=== PATIENT | male | born 1955 | race Caucasian/White ===

== ENCOUNTER 2017-05-27 12:27 | Inpatient (IN) | payer BC, OTHER ==
[2017-05-27] MEDS ORDERED: NS 0.9% 1000 ML* 1,000 ML IV ONE (12:56)
[2017-05-27 13:14] LABS: ABS Basophils 0 10^3/ul (0-0.2); ABS Eosinophils 0.1 10^3/ul (0-0.6); ABS Lymphocytes 1.1 10^3/ul (1.0-4.8); ABS Monocytes 0.6 10^3/ul (0-0.8); ABS Neutrophils 4.9 10^3/ul (1.5-7.7); ABS Nucleated RBC 0 10^3/ul; Eosinophil % 0.8 % (0-6); Hematocrit 45 % (42-52); Hemoglobin 15.7 g/dl (14.0-18.0); Mean Corpuscular HGB Conc 35 g/dl (31-36); Mean Corpuscular Hemoglobin 34 pg (27-31); Mean Corpuscular Volume 98 fL (80-94); Mean Platelet Volume 8 um3 (7.4-10.4); Nucleated Red Blood Cells % 0; Platelet Count 217 10^3/ul (150-450); Red Blood Count 4.61 10^6/ul (4.0-5.4); Red Cell Distribution Width 13 % (10.5-15); White Blood Count 6.7 10^3/ul (3.5-10.8)
[2017-05-27 13:37] LABS: EGFR Non-African American 104.6 (>60)
[2017-05-27] MEDS ORDERED: Furosemide IV* 10 MG/ML 2 ML VIAL (20 MG) IV ONE (14:22)
--- NOTE | 2017-05-27 14:26 | RAD ---
INDICATION: Generalized weakness COMPARISON: Chest x-ray December 20, 2004 TECHNIQUE: PA and lateral views of the chest were obtained. FINDINGS: The heart and mediastinum are normal in size and contour. The lungs are grossly clear. There is no evidence of large pleural effusion. Visualized bones are normal for the patient's age. There is no radiographic evidence of free air beneath the diaphragm IMPRESSION: No radiographic evidence of acute cardiopulmonary disease.
[2017-05-27 14:29] LABS: Urine Appearance Clear; Urine Blood 2+ (Negative); Urine Color Yellow; Urine Ketones Trace (Negative); Urine Protein Negative (Negative); Urine Specific Gravity 1.025 (1.010-1.030); Urine Urobilinogen Negative (Negative)
[2017-05-27] MEDS ORDERED: Nicotine PATCH 21 MG/24 HR* PATCH TRANSDERM SCH (18:00)
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
--- NOTE | 2017-05-27 18:33 | ED ---
Sally Elena Nilda, scribed for Romulo Caceres MD on 05/27/17 at 1304 . Complex/Multi-Sys Presentation - HPI Summary HPI Summary: This patient is a 62 year old M presenting to [facility] with a chief complaint of sudden onset constant anxiety and weakness for the past 3 days. Symptoms aggravated and alleviated by nothing. Patient reports N/V (4 days ago). Patient denies GA, CP, SOB, dizziness, abd pain, diarrhea, and constipation. Pt states he does not take medications. - History Of Current Complaint Chief Complaint: EDDysrhythmPalp Time Seen by Provider: 05/27/17 12:45 Hx Obtained From: Patient Onset/Duration: Sudden Onset, Lasting Days, Still Present Timing: Constant Aggravating Factor(s): nothing Alleviating Factor(s): nothing Associated Signs And Symptoms: Positive: Other - weakness, anxiety; denies GA, CP, SOB, dizziness, abd pain, diarrhea, and constipation - Allergies/Home Medications Allergies/Adverse Reactions: Allergies Allergy/AdvReac Type Severity Reaction Status Date / Time No Known Allergies Allergy Verified 05/27/17 12:36 Home Medications: Home Medications NK [No Home Medications Reported] 05/27/17 [History Confirmed 05/27/17] PMH/Surg Hx/FS Hx/Imm Hx Sensory History: Denies: Hx Legally Blind EENT History: Denies: Hx Deafness Neurological History: Reports: Other Neuro Impairments/Disorders - brain bleed from trauma Infectious Disease History: No Infectious Disease History: Denies: Traveled Outside the [place] in Last 30 Days - Family History Known Family History: Negative: Hypertension, Diabetes - Social History Hx Tobacco Use: Yes Smoking Status (MU): Current Every Day Smoker Type: Cigarettes Amount Used/How Often: 1 ppd Review of Systems Negative: Chest Pain Negative: Shortness Of Breath Positive: Vomiting, Nausea, Other - negative constipation. Negative: Abdominal Pain, Diarrhea Neurological: Other - negative dizziness Positive: Weakness. Negative: Headache Positive: Anxious All Other Systems Reviewed And Are Negative: Yes Physical Exam - Summary Physical Exam Summary: VITAL SIGNS: Reviewed. GENERAL: Patient is an unkept, male with poor hygiene in nails and poor dental hygiene who is lying comfortable in the stretcher. Patient is not in any acute respiratory distress. HEAD AND FACE: No signs of trauma. No ecchymosis, hematomas or skull depressions. No sinus tenderness. EYES: PERRLA, EOMI x 2, No injected conjunctiva, no nystagmus. EARS: Hearing grossly intact. Ear canals and tympanic membranes are within normal limits. MOUTH: Oropharynx within normal limits except for dry oral mucosa. NECK: Supple, trachea is midline, no adenopathy, no JVD, no carotid bruit, no c- spine tenderness, neck with full ROM. CHEST: Symmetric, no tenderness at palpation LUNGS: Clear to auscultation bilaterally. No wheezing or crackles. CVS: Regular rate and rhythm, S1 and S2 present, no murmurs or gallops appreciated. ABDOMEN: Soft, non-tender. No signs of distention. No rebound no guarding, and no masses palpated. Bowel sounds are normal. EXTREMITIES: FROM in all major joints, no edema, no cyanosis or clubbing. NEURO: Alert and oriented x 3. No acute neurological deficits. Speech is normal and follows commands. SKIN: Dry and warm Triage Information Reviewed: Yes Vital Signs On Initial Exam: Initial Vitals Temp Pulse Resp BP Pulse Ox 99.1 F 73 13 141/102 96 05/27/17 12:34 05/27/17 12:34 05/27/17 12:34 05/27/17 12:34 05/27/17 12:34 Vital Signs Reviewed: Yes Diagnostics - Vital Signs Vital Signs Temp Pulse Resp BP Pulse Ox 05/27/17 12:34 99.1 F 73 13 141/102 96 - Laboratory Lab Results: Lab Results 05/27/17 05/27/17 05/27/17 Range/Units 13:06 13:06 13:06 WBC 6.7 (3.5-10.8) 10^3/ul RBC 4.61 (4.0-5.4) 10^6/ul Hgb 15.7 (14.0-18.0) g/dl Hct 45 (42-52) % MCV 98 H (80-94) fL MCH 34 H (27-31) pg MCHC 35 (31-36) g/dl RDW 13 (10.5-15) % Plt Count 217 (150-450) 10^3/ul MPV 8 (7.4-10.4) um3 Neut % (Auto) 73.4 (38-83) % Lymph % (Auto) 16.0 L (25-47) % [place] % (Auto) 9.1 H (1-9) % Eos % (Auto) 0.8 (0-6) % Baso % (Auto) 0.7 (0-2) % Absolute Neuts (auto) 4.9 (1.5-7.7) 10^3/ul Absolute Lymphs (auto) 1.1 (1.0-4.8) 10^3/ul Absolute Monos (auto) 0.6 (0-0.8) 10^3/ul Absolute Eos (auto) 0.1 (0-0.6) 10^3/ul Absolute Basos (auto) 0 (0-0.2) 10^3/ul Absolute Nucleated RBC 0 10^3/ul Nucleated RBC % 0 D-Dimer, Quantitative (Less Than 230) ng/mL Sodium 137 (133-145) mmol/L Potassium 4.2 (3.5-5.0) mmol/L Chloride 105 (101-111) mmol/L Carbon Dioxide 27 (22-32) mmol/L Anion Gap 5 (2-11) mmol/L BUN 15 (6-24) mg/dL Creatinine 0.76 (0.67-1.17) mg/dL Est GFR ( Amer) 134.5 (>60) Est GFR (Non-Af Amer) 104.6 (>60) BUN/Creatinine Ratio 19.7 (8-20) Glucose 95 (70-100) mg/dL Calcium 8.9 (8.6-10.3) mg/dL Magnesium 2.0 (1.9-2.7) mg/dL Total Bilirubin 0.50 (0.2-1.0) mg/dL AST 10 L (13-39) U/L ALT 6 L (7-52) U/L Alkaline Phosphatase 80 (34-104) U/L Total Creatine Kinase 41 (10-223) U/L Troponin I 0.01 (<0.04) ng/mL C-Reactive Protein 1.11 (< 5.00) mg/L B-Natriuretic Peptide 1115 H ( - 100) pg/mL Total Protein 6.2 L (6.4-8.9) g/dL Albumin 3.8 (3.2-5.2) g/dL Globulin 2.4 (2-4) g/dL Albumin/Globulin Ratio 1.6 (1-3) TSH 0.60 (0.34-5.60) mcIU/mL Urine Color Urine Appearance Urine pH (5-9) Ur Specific [place] (1.010-1.030) Urine Protein (Negative) Urine Ketones (Negative) Urine Blood (Negative) Urine Nitrate (Negative) Urine Bilirubin (Negative) Urine Urobilinogen (Negative) Ur Leukocyte Esterase (Negative) Urine WBC (Auto) (Absent) Urine RBC (Auto) (Absent) Urine Bacteria (Absent) Urine Glucose (Negative) Urine Opiates Screen (None Detect) Ur Barbiturates Screen (None Detect) Ur Phencyclidine Scrn (None Detect) Ur Amphetamines Screen (None Detect) U Benzodiazepines Scrn (None Detect) Urine Cocaine Screen (None Detect) U Cannabinoids Screen (None Detect) Serum Alcohol < 10 (<10) mg/dL 05/27/17 05/27/17 05/27/17 Range/Units 13:06 13:56 13:56 WBC (3.5-10.8) 10^3/ul RBC (4.0-5.4) 10^6/ul Hgb (14.0-18.0) g/dl Hct (42-52) % MCV (80-94) fL MCH (27-31) pg MCHC (31-36) g/dl RDW (10.5-15) % Plt Count (150-450) 10^3/ul MPV (7.4-10.4) um3 Neut % (Auto) (38-83) % Lymph % (Auto) (25-47) % [place] % (Auto) (1-9) % Eos % (Auto) (0-6) % Baso % (Auto) (0-2) % Absolute Neuts (auto) (1.5-7.7) 10^3/ul Absolute Lymphs (auto) (1.0-4.8) 10^3/ul Absolute Monos (auto) (0-0.8) 10^3/ul Absolute Eos (auto) (0-0.6) 10^3/ul Absolute Basos (auto) (0-0.2) 10^3/ul Absolute Nucleated RBC 10^3/ul Nucleated RBC % D-Dimer, Quantitative < 200 (Less Than 230) ng/mL Sodium (133-145) mmol/L Potassium (3.5-5.0) mmol/L Chloride (101-111) mmol/L Carbon Dioxide (22-32) mmol/L Anion Gap (2-11) mmol/L BUN (6-24) mg/dL Creatinine (0.67-1.17) mg/dL Est GFR ( Amer) (>60) Est GFR (Non-Af Amer) (>60) BUN/Creatinine Ratio (8-20) Glucose (70-100) mg/dL Calcium (8.6-10.3) mg/dL Magnesium (1.9-2.7) mg/dL Total Bilirubin (0.2-1.0) mg/dL AST (13-39) U/L ALT (7-52) U/L Alkaline Phosphatase (34-104) U/L Total Creatine Kinase (10-223) U/L Troponin I (<0.04) ng/mL C-Reactive Protein (< 5.00) mg/L B-Natriuretic Peptide ( - 100) pg/mL Total Protein (6.4-8.9) g/dL Albumin (3.2-5.2) g/dL Globulin (2-4) g/dL Albumin/Globulin Ratio (1-3) TSH (0.34-5.60) mcIU/mL Urine Color Yellow Urine Appearance Clear Urine pH 6.0 (5-9) Ur Specific [place] 1.025 (1.010-1.030) Urine Protein Negative (Negative) Urine Ketones Trace H (Negative) Urine Blood 2+ H (Negative) Urine Nitrate Negative (Negative) Urine Bilirubin Negative (Negative) Urine Urobilinogen Negative (Negative) Ur Leukocyte Esterase Negative (Negative) Urine WBC (Auto) Trace(0-5/hpf) (Absent) Urine RBC (Auto) 3+(>10/hpf) H (Absent) Urine Bacteria Absent (Absent) Urine Glucose Negative (Negative) Urine Opiates Screen None detected (None Detect) Ur Barbiturates Screen None detected (None Detect) Ur Phencyclidine Scrn None detected (None Detect) Ur Amphetamines Screen None detected (None Detect) U Benzodiazepines Scrn None detected (None Detect) Urine Cocaine Screen None detected (None Detect) U Cannabinoids Screen None detected (None Detect) Serum Alcohol (<10) mg/dL 05/27/17 Range/Units 16:55 WBC (3.5-10.8) 10^3/ul RBC (4.0-5.4) 10^6/ul Hgb (14.0-18.0) g/dl Hct (42-52) % MCV (80-94) fL MCH (27-31) pg MCHC (31-36) g/dl RDW (10.5-15) % Plt Count (150-450) 10^3/ul MPV (7.4-10.4) um3 Neut % (Auto) (38-83) % Lymph % (Auto) (25-47) % [place] % (Auto) (1-9) % Eos % (Auto) (0-6) % Baso % (Auto) (0-2) % Absolute Neuts (auto) (1.5-7.7) 10^3/ul Absolute Lymphs (auto) (1.0-4.8) 10^3/ul Absolute Monos (auto) (0-0.8) 10^3/ul Absolute Eos (auto) (0-0.6) 10^3/ul Absolute Basos (auto) (0-0.2) 10^3/ul Absolute Nucleated RBC 10^3/ul Nucleated RBC % D-Dimer, Quantitative (Less Than 230) ng/mL Sodium (133-145) mmol/L Potassium (3.5-5.0) mmol/L Chloride (101-111) mmol/L Carbon Dioxide (22-32) mmol/L Anion Gap (2-11) mmol/L BUN (6-24) mg/dL Creatinine (0.67-1.17) mg/dL Est GFR ( Amer) (>60) Est GFR (Non-Af Amer) (>60) BUN/Creatinine Ratio (8-20) Glucose (70-100) mg/dL Calcium (8.6-10.3) mg/dL Magnesium (1.9-2.7) mg/dL Total Bilirubin (0.2-1.0) mg/dL AST (13-39) U/L ALT (7-52) U/L Alkaline Phosphatase (34-104) U/L Total Creatine Kinase (10-223) U/L Troponin I 0.01 (<0.04) ng/mL C-Reactive Protein (< 5.00) mg/L B-Natriuretic Peptide ( - 100) pg/mL Total Protein (6.4-8.9) g/dL Albumin (3.2-5.2) g/dL Globulin (2-4) g/dL Albumin/Globulin Ratio (1-3) TSH (0.34-5.60) mcIU/mL Urine Color Urine Appearance Urine pH (5-9) Ur Specific [place] (1.010-1.030) Urine Protein (Negative) Urine Ketones (Negative) Urine Blood (Negative) Urine Nitrate (Negative) Urine Bilirubin (Negative) Urine Urobilinogen (Negative) Ur Leukocyte Esterase (Negative) Urine WBC (Auto) (Absent) Urine RBC (Auto) (Absent) Urine Bacteria (Absent) Urine Glucose (Negative) Urine Opiates Screen (None Detect) Ur Barbiturates Screen (None Detect) Ur Phencyclidine Scrn (None Detect) Ur Amphetamines Screen (None Detect) U Benzodiazepines Scrn (None Detect) Urine Cocaine Screen (None Detect) U Cannabinoids Screen (None Detect) Serum Alcohol (<10) mg/dL Result Diagrams: 05/27/17 13:06 05/27/17 13:06 Lab Statement: Any lab studies that have been ordered have been reviewed, and results considered in the medical decision making process. - Radiology CXR Radiology Interpretation Completed By: Radiologist - CXR, per radiologist, reveals no radiographic evidence of acute cardiopulmonary disease. Dr. Caceres has reviewed this report. - EKG 1239 Cardiac Rate: NL EKG Rhythm: Sinus Rhythm - 71 bpm EKG Interpretation: LBBB Complex Multi-Symp Course/Dx Assessment/Plan: This patient is a 62 year old M presenting to [facility] with a chief complaint of sudden onset constant anxiety and weakness for the past 3 days. Symptoms aggravated and alleviated by nothing. Patient reports N/V (4 days ago). Patient denies GA, CP, SOB, dizziness, abd pain, diarrhea, and constipation. Pt states he does not take medications. An EKG reveals NSR, 71 bpm, LBBB. CXR, per radiologist, reveals no radiographic evidence of acute cardiopulmonary disease. Dr. Caceres has reviewed this report. In the ED course an IV access was obtained. Patient was placed in a career and guidance counselor. Patient was started with IV fluids. Labs without any significant abnormality except for BNP of 1115. Troponin #1: 0.00. In the ED course he was given lasix and symptoms improved. I discuss my physical exam, findings and test results with Dr. Engle from the hospitalist services and she agrees to admit patient to his services. Patient is hemodynamically stable alert and oriented x 3. - Diagnoses Differential Diagnoses/HQI/PQRI: Cardiac Ischemia, Metabolic Abnormality, Urinary Tract Infection Provider Diagnoses: CHF (congestive heart failure), Weakness - Physician Notifications Discussed Care Of Patient With: Sharif Engle - Hospitalist Time Discussed With Above Provider: 15:48 Instructed by Provider To: Other - recommends D-dimer before agreeing to admit pt. Discharge - Discharge Plan Condition: Stable Disposition: ADMITTED TO [facility] Referrals: Chitra Rivas, PATIENT ACCESS DIRECTOR [Primary Care Provider] - The documentation as recorded by the Sally crabtree Nilda accurately reflects the service I personally performed and the decisions made by me, Romulo Caceres MD.
--- NOTE | 2017-05-27 18:55 | RAD ---
INDICATION: Acute anxiety. COMPARISON: Comparison is made with a prior CT of the brain from December 20, 2004. TECHNIQUE: Contiguous axial sections of the brain were obtained from the skull base to the vertex without contrast. FINDINGS: The ventricles, cisterns and sulci are enlarged consistent with age-related atrophy. There is a small area of encephalomalacia present in the posterior lateral aspect of the right temporal lobe. No other focal abnormalities or mass effect are seen. There is no evidence for hemorrhage. There is a 2.4 cm nodular density partially visualized within the right maxillary sinus most consistent with a mucous retention cyst or polyp. The visualized portion of the paranasal sinuses and mastoid air cells otherwise appear clear. IMPRESSION: NO EVIDENCE FOR ACUTE INTRACRANIAL ABNORMALITY.
[2017-05-28] MEDS: Nicotine PATCH 21 MG/24 HR* PATCH TRANSDERM SCH (08:53)
[2017-05-28] MEDS ORDERED: Influenza VAC *QUAD* 2017-18* 0.5 ML SYRINGE IM ONE (09:00)
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
[2017-05-29] MEDS: Nicotine Patch Removal NOTE PATCH OFF SCH (00:09)
[2017-05-29] MEDS: Nicotine PATCH 21 MG/24 HR* PATCH TRANSDERM SCH (08:25)
--- NOTE | 2017-05-29 11:20 | ECHO ---
Amended Report Patient: JOSEFINA HERBERT [facility] Rec#: [id number] : 1955 Date: 05/29/2017 Age: 62y Height: 170.18 cm / 67.0 in Weight: 86.18 kg / 189.9 lbs Sex: M BSA: 1.98 Room#: [facility] Admit Date#: 05/27/2017 Type: Inpatient Referring: Sharif Engle MD Reading: Charleen Sam MD Clinical Informatics Strategist: Yusra Montalvo RDCS Transthoracic Echocardiogram Indication: CHF, PHTN BP: 109/78 HR: 64 Rhythm: NSR Findings History: Smoker, TBI, Epidural brain hematoma 2008. Technical Comments: The study quality is good. Completed at 1045. Left Ventricle: The left ventricular size is moderate to severely dilated. Mild concentric left ventricular hypertrophy is observed. There is evidence of a dilated cardiomyopathy. There is global hypokinesis of the left ventricle with minor regional variation. There is severely decreased left ventricular systolic function. The estimated ejection fraction is less than 20%. Abnormal left ventricular diastolic function is observed. Abnormal left ventricular diastolic filling is observed, consistent with impaired relaxation. Left Atrium: The left atrium is severely dilated. Right Ventricle: The right ventricle is moderately dilated. The right ventricular global systolic function is moderately reduced. Right Atrium: The right atrium is mild to moderately dilated. Aortic Valve: The aortic valve is trileaflet. The aortic valve leaflets are mildly thickened. There is mild aortic regurgitation. There is no evidence of aortic stenosis. Mitral Valve: The mitral valve leaflets are mildly thickened. There is mild to moderate mitral regurgitation. There is no evidence of mitral stenosis. Tricuspid Valve: The tricuspid valve leaflets are normal. There is mild to moderate tricuspid regurgitation. The right ventricular systolic pressure is estimated at 37 mmHg. There is evidence of mild pulmonary hypertension. There is no tricuspid stenosis. Pulmonic Valve: The pulmonic valve appears normal. There is trace to mild pulmonic regurgitation. There is no pulmonic stenosis. Pericardium: There is no significant pericardial effusion. Aorta: There is moderate dilatation of the ascending aorta. There is no dilatation of the aortic arch. There is mild dilatation of the aortic root. Pulmonary Artery: The main pulmonary artery appears normal. Venous: The inferior vena cava is dilated. There is a greater than 50% respiratory change in the inferior vena cava dimension. Summary: There was not any prior study for comparison. Conclusions The left ventricular size is moderate to severely dilated. Mild concentric left ventricular hypertrophy is observed. There is evidence of a dilated cardiomyopathy. There is global hypokinesis of the left ventricle with minor regional variation. The estimated ejection fraction is less than 20%. The left atrium is severely dilated. The right ventricle is moderately dilated. The right atrium is mild to moderately dilated. There is mild aortic regurgitation. There is mild to moderate mitral regurgitation. There is mild to moderate tricuspid regurgitation. There is evidence of mild pulmonary hypertension. There is trace to mild pulmonic regurgitation. There is moderate dilatation of the ascending aorta. There is mild dilatation of the aortic root. D/w Dr Engle Measurements Name Value Normal Range RVIDd (AP) 2D 3.6 cm (0.9 - 2.6) RVDdMajor (2D) 5 cm (2.2 - 4.4) RAd ISD 4CH 5.1 cm (3.4 - 4.9) RA (A4C)W 5.3 cm (2.9 - 4.6) IVSd (2D) 1.2 cm (0.6 - 1) LVPWd (2D) 1.2 cm (0.6 - 1) LVIDd (2D) 7.4 cm (3.6 - 5.4) LVIDs (2D) 6.7 cm - LV FS (2D) 8 % (25 - 45) Aortic Annulus 2.3 cm (1.4 - 2.6) Ao root diameter (2D) 3.7 cm (2.1 - 3.5) Ascending Ao 4.4 cm (2.1 - 3.4) Aortic arch 2.3 cm (1.8 - 3.4) LA dimension (AP) 2D 5.2 cm (2.3 - 3.8) LAd ISD 4CH 5.6 cm (2.9 - 5.3) LA ISD 4CH W 5.7 cm (2.5 - 4.5) Name Value Normal Range LA ESV SP 4CH (A/L) 96 ml - LA ESV SP 2CH (A/L) 142 ml - LA ESV BP (A/L) 127 ml - LA ESV BP (A/L) index 64 ml/m2 - LA ESV SP 4CH (MOD) 82 ml - LA ESV SP 2CH (MOD) 137 ml - Name Value Normal Range MV E-wave Vmax 0.62 m/sec - MV deceleration time 171.14 msec - MV A-wave Vmax 0.88 m/sec - MV E:A ratio 0.7 ratio - LV septal e' Vmax 0.04 m/sec - LV lateral e' Vmax 0.03 m/sec - LV E:e' septal ratio 15.5 ratio - LV E:e' lateral ratio 20.67 ratio - Name Value Normal Range AV Vmax 1.42 m/sec - AV VTI 26.73 cm - AV peak gradient 8.14 mmHg - AV mean gradient 5.47 mmHg - LVOT Vmax 0.71 m/sec - LVOT VTI 12.8 cm - LVOT peak gradient 2.03 mmHg - LVOT mean gradient 1.2 mmHg - ELMA Vmax 0.63 m/sec - Name Value Normal Range MR Vmax 4.57 m/sec - MR VTI 180.3 cm - MR flow (PISA) 90.3 ml/sec - MR ERO 0.2 cm2 - MR PISA radius 0.6 cm - MR alias Vmax 44.2 cm/sec - Name Value Normal Range TR Vmax 2.7 m/sec - TR peak gradient 29 mmHg - RAP 8 mmHg - RVSP 37 mmHg - IVC diameter 2.5 cm - Name Value Normal Range PV Vmax 0.97 m/sec - PV peak gradient 3.81 mmHg -
[2017-05-29] MEDS ORDERED: Metoprolol Tartrate TAB* 25 MG PO ONE (14:03)
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
[2017-05-30] MEDS: Nicotine Patch Removal NOTE PATCH OFF SCH (01:30)
--- NOTE | 2017-05-30 08:18 | PN ---
Progress Note - Progress Note Date of Service: 05/30/17 Note: Time spent on discharge 40 minutes.
[2017-05-30] MEDS ORDERED: Lisinopril TAB* 5 MG PO SCH (09:00)
[2017-05-30] MEDS ORDERED: Metoprolol Succinate XL TAB* 25 MG PO SCH (09:00)
[2017-05-30] MEDS: Nicotine PATCH 21 MG/24 HR* PATCH TRANSDERM SCH (09:46)
[2017-05-30 16:38] VITALS: BP 109/66
--- NOTE | 2017-05-30 21:05 | DS ---
CC: SHELBY Barnes * DISCHARGE SUMMARY: DATE OF ADMISSION: 05/27/17 DATE OF DISCHARGE: 05/30/17 HISTORY OF PRESENT ILLNESS: This 62-year-old man presented complaining of being nervous for 3 days. He denied other symptoms. The patient initially refused all medications, I ordered nicotine patch for him , which he also refused. He was evaluated by the psychiatrist, who felt he was capable of managing his affairs at home and did not need any specific psychiatric intervention at this time. The patient's anxiety seemed to have diminished a little bit and he felt the patient changed in that he felt he was able to go home also. As part of investigation of his elevated BNP, an echocardiogram was ordered that showed severe global hypokinesis with an ejection fraction of less than 20% . The patient was started on lisinopril and metoprolol succinate in low doses, which he tolerated in the hospital. He will follow up with his doctor at [facility], which may be SHELBY Barnes, or another practitioner there. FINAL DIAGNOSES: 1. Non-ischemic cardiomyopathy. 2. History of traumatic brain injury. 3. Anxiety. 4. Tobacco use disorder. DISCHARGE MEDICATIONS: 1. Metoprolol succinate 25 mg daily. 2. Lisinopril 2.5 mg daily. [id number]/[facility] #: [id number] [facility]ITAL[facility]ad
== END 2017-05-30 16:35 | disposition home or self-care (01) | DRG 205 ==
LOC: ED 12:27 → MED 17:30
PROVIDERS: ADMIT Internal Medicine; ATTEND Internal Medicine
DX: I42.8 Other cardiomyopathies (principal); F17.210 Nicotine dependence, cigarettes, uncomplicated; I10 Essential (primary) hypertension; K08.109 Complete loss of teeth, unspecified cause, unspecified class; I44.7 Left bundle-branch block, unspecified; R48.0 Dyslexia and alexia; F41.9 Anxiety disorder, unspecified; Z87.820 Personal history of traumatic brain injury
CPT/HCPCS: 36415; 70450; 71046; 80053; 80307; 80320; 81003; 81015; 82550; 83735; 83880; 84443; 84484; 85025; 85379; 86140; 90686; 93005; 93306; 96361; 96374; 99283; A9270-GY; G0480; J1940

== ENCOUNTER 2018-11-20 11:18 | Day surgery (SDC) | payer OTHER ==
[~2018-11-20 11:18] MED LIST: Acetaminophen TAB* 325 MG PO PRN; Cyclopentolate 1% OPTH.SOL* 2 ML BTL ONE; Ketorolac 0.5% OPHTH (NF) 0.5 % 5 ML BTL ONE; Lidocaine 1% MPF ** 5 ML VIAL ONE; Neomycin/Polymy/Dex OPHTH.OIN* 3.5 GM ONE; Phenylephrine OPHTH SOL 2.5%* 2 ML ONE; Povidone Iodine 5% OPTH* 30 ML BTL ONE; Tetracaine 0.5% OPTH.SOL 4 ML* 1 DROP BTL ONE; Tropicamide 1% OPTH.SOL* BTL ONE; acetaZOLAMIDE TAB* 250 MG ONE
[2018-11-20] MEDS ORDERED: Midazolam* 1 MG/ML 5 ML VIAL (5 MG) ONE (11:52)
[2018-11-20] MEDS ORDERED: fentaNYL* 50 MCG/ML 2 ML VIAL (100 MCG VIAL) ONE (12:40)
--- NOTE | 2018-11-20 14:02 | OP ---
DATE OF OPERATION: 11/20/18 [facility] DATE OF : 59 SURGEON: Jay Cook MD. ANESTHESIA: Monitored anesthesia care. PREOPERATIVE DIAGNOSIS: Cataract, right eye. POSTOPERATIVE DIAGNOSIS: Cataract, right eye. OPERATIVE PROCEDURE: Extracapsular cataract extraction of the right eye with intraocular lens implant. IMPLANT: SN60WF 20.5 diopter lens to the right eye. COMPLICATIONS: None. DESCRIPTION OF PROCEDURE: The patient was given phenylephrine 2.5 % and cyclopentolate 1% eye drops to the operative eye in the preoperative area. The patient was taken to the operating room where a time-out was taken to identify the correct patient, site, and side of surgery. The patient's right eye was prepped and draped in the usual sterile fashion with 5% Betadine. A second time- out was taken to verify the correct patient, side, and site of surgery, as well as the correct lens implant. A lid speculum was placed to the right eye. A 1mm paracentesis blade was used to make a clear corneal incision. Preservative-free 1% lidocaine was injected into the anterior chamber. DisCoVisc was then injected into the anterior chamber. A 2.75 mm keratome blade was used to make a triplanar incision. A cystotome initiated a capsulorrhexis, which was completed with Utrata forceps in a continuous and curvilinear manner. Hydrodissection of the lens was performed with BSS on a cannula. The lens could be spun in a capsular bag. The phacoemulsification handpiece was used with a divide-and- conquer technique to remove the nucleus. The I/A handpiece then removed the residual cortical lens material. DisCoVisc was injected to inflate the capsular bag. The planned SN60WF 20.5 diopter lens was injected into the capsular bag. The residual DisCoVisc was removed from the eye with the I/A handpiece. The corneal incisions were hydrated and no leaks occurred at physiologic pressure around 20 mmHg per palpation. The lid speculum was removed and drapes were removed. Maxitrol ointment was placed to the surface of the operative eye. An adhesive patch and shield was then placed on the operative eye. The patient was taken to the postoperative area in stable condition. [id number]/[facility] #: [id number] [facility]
[2018-11-20 14:22] VITALS: BP 134/79
== END 2018-11-20 13:33 | disposition home or self-care (01) ==
LOC: OREAST 11:18
PROVIDERS: ATTEND Student in an Organized Health Care Education/Training Program
DX: Z01.818 Encounter for other preprocedural examination (principal); H25.11 Age-related nuclear cataract, right eye; J44.9 Chronic obstructive pulmonary disease, unspecified; I42.0 Dilated cardiomyopathy; F17.210 Nicotine dependence, cigarettes, uncomplicated
CPT/HCPCS: A9270-GY; J2250; J3010; V2632

== ENCOUNTER 2019-05-28 13:06 | Emergency (ER) | payer OTHER ==
--- OUTSIDE RECORDS SUMMARY | 2019-05-28 13:23 | XMS REPORT | Continuity of Care Document ---
:1955 External Reference #:[id number] Author Name Kathleen Stanford NОльга (transmitted by agent of provider Gavin Stoddard) Address [address] [place] [address] Care Team Providers Name Role Phone Chitra Rivas NP - Family Care Team Information Content Engineer [phone] Problems Description No Information Available Social History Type Date Description Comments Sex Unknown Tobacco Use Start: Unknown End: Former Cigarette Smoker Unknown ETOH Use Denies alcohol use Recreational Drug Use Denies Drug Use Tobacco Use Start: Unknown Light tobacco smoker (10 or fewer cigarettes/day) Smoking Status Reviewed: 04/02/19 Light tobacco smoker (10 or fewer cigarettes/day) Exercise Type/Frequency Does not exercise Allergies, Adverse Reactions, Alerts Description No Known Drug Allergies Medications Active Medications SIG Qnty Indications Ordering Provider Date Entresto Take 1 tab by 60tabs I42.9 Kathleen Stanford, 04/02/2019 24-26mg Tablets mouth twice N.P. daily Toprol XL 1 by mouth every Unknown 11/16/2018 25mg Tablets ER day 24HR Toprol XL 1 by mouth every 90tabs Kathleen Stanford, 06/23/2017 50mg Tablets ER day N.P. 24HR Bupropion 1 by mouth every Unknown Hydrochloride ER (XL) day for mood and smoking 150mg Tablets ER 24HR Immunizations Description No Information Available Vital Signs Date Vital Result Comment 04/02/2019 1:31pm Height 67 inches 5'7" Weight 212.25 lb with shoes Heart Rate 64 /min BP Systolic Sitting 152 mmHg Rue (regular cuff) BP Diastolic Sitting 100 mmHg Rue (regular cuff) BP Systolic Standing 130 mmHg BP Diastolic Standing 90 mmHg BMI (Body Mass Index) 33.2 kg/m2 Ejection Fraction 25-30% Echocardiogram 01/23/2019 02/02/2019 3:44pm Height 67 inches 5'7" Weight 215.50 lb with shoes Heart Rate 78 /min L. radial, regular BP Systolic Sitting 150 mmHg LA, reg cuff BP Diastolic Sitting 110 mmHg LA, reg cuff BP Systolic Standing 138 mmHg LA, reg cuff BP Diastolic Standing 102 mmHg LA, reg cuff BMI (Body Mass Index) 33.7 kg/m2 Ejection Fraction 25%-30% echo 01/23/19 Results Description No Information Available Procedures Date Code Description Status 02/21/2019 89690 Holter Monitor Review (24 hr)dr review & interp only Completed 02/20/2019 07030 ECG Monitor/Recording W/Visual Superimposition Scanning Completed 02/20/2019 98424 ECG Monitor/Recording W/Visual Superimposition Scanning Completed 02/02/2019 61704 EKG Tracing & Interpretation Completed 01/23/2019 60695 ECHO Transthoracic, Real-Time 2D With Doppler And Color Completed Flow 01/23/2019 32008 ECHO Transthoracic, Real-Time 2D With Doppler And Color Completed Flow Medical Devices Description No Information Available Encounters Type Date Location Provider Dx Diagnosis Office Visit 02/02/2019 [facility] Charleen Canseco. R94.31 Abnormal 4:00p chio Sam [JESUS] John [EKG] I44.7 Left bundle-branch block, unspecified I42.9 Cardiomyopathy, unspecified I77.819 Aortic ectasia, unspecified site I34.0 Nonrheumatic mitral (valve) insufficiency Assessments Date Code Description Provider 04/02/2019 I42.9 Cardiomyopathy, unspecified Kathleen Stanford, N.P. 04/02/2019 I44.7 Left bundle-branch block, unspecified Kathleen Stanford, N.P. 04/02/2019 R94.31 Abnormal electrocardiogram [ECG] [EKG] Kathleen Stanford, N.P. 04/02/2019 I34.0 Nonrheumatic mitral (valve) Kathleen Stanford, N.P. insufficiency 04/02/2019 I77.819 Aortic ectasia, unspecified site Kathleen Stanford, N.P. 02/21/2019 I42.9 Cardiomyopathy, unspecified Charleen Sam M.D. 02/21/2019 I44.7 Left bundle-branch block, unspecified Charleen Sam M.D. 02/20/2019 I42.9 Cardiomyopathy, unspecified Nurse Visit cc 02/20/2019 I44.7 Left bundle-branch block, unspecified Charleen Sam M.D. 02/20/2019 I44.7 Left bundle-branch block, unspecified Nurse Visit cc 02/02/2019 R94.31 Abnormal electrocardiogram [ECG] [EKG] Charleen Sam M.D. 02/02/2019 I44.7 Left bundle-branch block, unspecified Charleen Sam M.D. 02/02/2019 I42.9 Cardiomyopathy, unspecified Charleen Sam M.D. 02/02/2019 I77.819 Aortic ectasia, unspecified site Charleen Sam M.D. 02/02/2019 I34.0 Nonrheumatic mitral (valve) Charleen Sam M.D. insufficiency 01/23/2019 R94.31 Abnormal electrocardiogram [ECG] [EKG] Charleen Sam M.D. 01/23/2019 R94.31 Abnormal electrocardiogram [ECG] [EKG] [facility] Schedule 01/23/2019 I44.7 Left bundle-branch block, unspecified [facility] Schedule 01/23/2019 I42.9 Cardiomyopathy, unspecified [facility] Schedule Plan of Treatment Future Appointment(s):10/02/2019 3:20 pm - Charleen Sam M.D. at [facility]05/07/2019 3:00 pm - Kathleen Stanford, N.P. at [facility]04/02/2019 - Kathleen Stanford, N.P.I42.9 Cardiomyopathy, unspecifiedNew Medication:Entresto 24-26 mg - Take 1 tab by mouth twice dailyNew Labs:Basic Metabolic Panel, Ordered: 04/02/19Follow up:OV 1mo Kathleen OV 6mo please make sure pt scheduled at [facility] office and [facility] office.Recommendations:1) academic support coordinator the entresto from pharmacy 2) STOP lisinopril 3) Wait 2 days, then start entresto 4) Havebloodwork 2 weeks after starting new [id number] Left bundle -branch block, cbtzktswqpbU43.31 Abnormal electrocardiogram [ECG] [EKG]I34.0 Nonrheumatic mitral (valve) [id number] Aortic ectasia, unspecified site Functional Status Description No Information Available Mental Status Description No Information Available Referrals Refer to Dr Reason for Referral Status Appt Date Ryann Lamar MD severe non ischemic cmp and was seen last year at [facility] [address] [place] [address] [address] [phone] Faraz Burr MD discuss BiV ICD for severe CMP and LBBB [facility] [address] [place] [address] [phone]
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
[2019-05-28] MEDS ORDERED: Oxymetazoline 0.05% NASAL SPR* 15 ML BTL RIGHT NARE ONE (14:36)
[2019-05-28 15:03] LABS: Hematocrit 41 % (42-52); Hemoglobin 14.1 g/dL (14.0-18.0); Mean Corpuscular HGB Conc 35 g/dL (31-36); Mean Corpuscular Hemoglobin 34 pg (27-31); Mean Corpuscular Volume 97 fL (80-94); Mean Platelet Volume 7.1 fL (7.4-10.4); Platelet Count 212 10^3/uL (150-450); Red Blood Count 4.19 10^6 /uL (4.18-5.48); Red Cell Distribution Width 14 % (10-15); White Blood Count 7.5 10^3/uL (3.5-10.8)
[2019-05-28 17:29] VITALS: BP 135/86
== END 2019-05-28 17:28 | disposition home or self-care (01) ==
LOC: ED 13:06
DX: R04.0 Epistaxis (principal); I10 Essential (primary) hypertension; F41.9 Anxiety disorder, unspecified; Z87.891 Personal history of nicotine dependence; Z79.899 Other long term (current) drug therapy
CPT/HCPCS: 30901; 36415; 85027; 85610; 99282; A9270-GY